=== PATIENT | female | born 1995 ===

== ENCOUNTER 2020-11-20 08:02 | Day surgery (SDC) | payer BC, OTHER ==
[~2020-11-20 08:02] MED LIST: Albuterol 0.083% 2.5 MG/3 ML Neb Soln NEB PRN; Dexamethasone 4 MG/ML 5 ML MDV ONE; HYDROmorphone 2 MG/ML Syringe IVPUSH PRN; Lactated Ringers 1,000 ML IV SCH; Metoclopramide 10 MG/2 ML SDV IVPUSH PRN; Morphine 2 MG/ML SYRINGE IVPUSH PRN; Naloxone 0.4 MG/ML Syringe IVPUSH PRN; Ondansetron 4 MG/2 ML SDV IVPUSH PRN; Ondansetron 4 MG/2 ML SDV ONE; Propofol 200 MG/20 ML SDV ONE; Sodium Chloride 0.9% 10 ML SDV IV PRN; Sodium Chloride 0.9% 10 ML Syringe FLUSH PRN; Sodium Chloride 0.9% 2.5 ML Syringe FLUSH PRN; Sodium Chloride 0.9% 20 ML ONE; ceFAZolin 2 GM in Premix Bag 1 BAG IV ONE; fentaNYL 100 MCG/2 ML SDV IVPUSH PRN; fentaNYL 100 MCG/2 ML SDV ONE
--- NOTE | 2020-11-20 09:14 | PCM.PREANE ---
Preanesthetic Assessment - Anesthesia/Transfusion/Family Hx Anesthesia History: Prior Anesthesia Without Reaction Family History of Anesthesia Reaction: No Transfusion History: No Prior Transfusion(s) - Review of Systems General: No Symptoms Pulmonary: No Symptoms Cardiovascular: No Symptoms Gastrointestinal: No Symptoms Neurological: No Symptoms Other: Reports: None - Physical Assessment NPO Status Date: 11/20/20 NPO Status Time: 00:01 Vital Signs: Last Vital Signs Temp 97.2 F 11/20/20 08:40 Pulse 66 11/20/20 08:40 Resp 16 11/20/20 08:40 BP 107/66 11/20/20 08:40 Pulse Ox 96 11/20/20 08:40 Height: 5 ft 11 in Weight: 206 lb ASA Class: 2 Mental Status: Alert & Oriented x3 Airway Class: Mallampati = 2 Dentition: Reports: Normal Dentition ROM/Head Extension: Full Lungs: Clear to Auscultation, Normal Respiratory Effort Cardiovascular: Regular Rate, Regular Rhythm - Lab Values: Laboratory Last Values Urine HCG, Qual NEGATIVE (NEGATIVE) 11/20/20 08:14 - Allergies Allergies/Adverse Reactions: Allergies Allergy/AdvReac Type Severity Reaction Status Date / Time No Known Allergies Allergy Verified 11/19/20 08:43 - Anesthesia Plan Pre-Op Medication Ordered: None - Acknowledgements Anesthesia Type Planned: General Anesthesia Pt an Appropriate Candidate for the Planned Anesthesia: Yes Alternatives and Risks of Anesthesia Discussed w Pt/Guardian: Yes Pt/Guardian Understands and Agrees with Anesthesia Plan: Yes Additional Comments: npo after mn tob 1/2 ppd etoh 2-3 beers daily hayfever bmi 29 PreAnesthesia Questionnaire HEENT History: Reports: Other (See Below) Other HEENT History: wears glasses Cardiovascular History: Reports: None Respiratory History: Reports: None Gastrointestinal History: Reports: GERD Genitourinary History: Reports: UTI, Recurrent PASTEURIZER History: Reports: None Musculoskeletal History: Reports: None Neurological History: Reports: None Psychiatric History: Reports: Other (See Below) Other Psychiatric History: some claustrophobia Endocrine/Metabolic History: Reports: None Hematologic History: Reports: None Immunologic History: Reports: None Oncologic (Cancer) History: Reports: None Dermatologic History: Reports: None - Past Surgical History Head Surgeries/Procedures: Reports: None HEENT Surgical History: Reports: Naso-Sinus Surgery, Tonsillectomy Cardiovascular Surgical History: Reports: None Respiratory Surgical History: Reports: None GI Surgical History: Reports: None Female Surgical History: Reports: None Oncologic Surgical History: Reports: None - SUBSTANCE USE Tobacco Use Status *Q: Current Every Day Tobacco User Tobacco Use Within Last Twelve Months: Cigarettes Recreational Drug Use History: No - HOME MEDS Home Medications: Home Meds . [No Known Home Meds] 11/19/20 [History] - CURRENT (IN HOUSE) MEDS Current Meds: Current Medications Albuterol (Albuterol 0.083% 2.5 Mg/3 Ml Neb Soln) 2.5 mg NEB ONETIME PRN PRN Reason: Wheezing Droperidol (Droperidol 5 Mg/2 Ml Sdv) 0.625 mg IVPUSH ONETIME PRN PRN Reason: Nausea/Vomiting Fentanyl (Fentanyl 100 Mcg/2 Ml Sdv) 50 mcg IVPUSH Q5M PRN PRN Reason: Pain (mild 1-3) Hydromorphone HCl (Hydromorphone 2 Mg/Ml Syringe) 0.5 mg IVPUSH Q10M PRN PRN Reason: Pain (moderate 4-6) Lactated Ringer's (Ringers, Lactated) 1,000 mls @ 125 mls/hr IV ASDIRECTED ROJELIO Last Admin: 11/20/20 08:53 Dose: 125 mls/hr Documented by: Metoclopramide HCl (Metoclopramide 10 Mg/2 Ml Sdv) 10 mg IVPUSH ONETIME PRN PRN Reason: Nausea/Vomiting Morphine Sulfate (Morphine 2 Mg/Ml Syringe) 2 mg IVPUSH Q10M PRN PRN Reason: Pain (severe 7-10) Naloxone HCl (Naloxone 0.4 Mg/Ml Syringe) 0.1 mg IVPUSH ASDIRECTED PRN PRN Reason: Respiratory Depression Ondansetron HCl (Ondansetron 4 Mg/2 Ml Sdv) 4 mg IVPUSH ONETIME PRN PRN Reason: Nausea/Vomiting Sodium Chloride (Sodium Chloride 0.9% 2.5 Ml Syringe) 2.5 ml FLUSH ASDIRECTED PRN PRN Reason: Keep Vein Open Sodium Chloride (Sodium Chloride 0.9% 10 Ml Sdv) 10 ml IV ASDIRECTED PRN PRN Reason: IV Use Sodium Chloride (Sodium Chloride 0.9% 10 Ml Syringe) 10 ml FLUSH ASDIRECTED PRN PRN Reason: Keep Vein Open Discontinued Medications Dexamethasone (Dexamethasone 4 Mg/Ml 5 Ml Mdv) Confirm Administered Dose 20 mg .ROUTE .STK-MED ONE Stop: 11/20/20 06:59 Fentanyl (Fentanyl 100 Mcg/2 Ml Sdv) Confirm Administered Dose 100 mcg .ROUTE .STK-MED ONE Stop: 11/20/20 06:59 Cefazolin Sodium/Dextrose 2 gm (/ Premix) 50 mls @ 100 mls/hr IV ONETIME ONE Stop: 11/17/20 09:17 Sodium Chloride (Normal Saline) Confirm Administered Dose 20 mls @ as directed .ROUTE .STK-MED ONE Stop: 11/20/20 07:01 Lidocaine HCl (Lidocaine 1% 5 Ml Sdv) Confirm Administered Dose 5 ml .ROUTE .STK -MED ONE Stop: 11/20/20 06:59 Ondansetron HCl (Ondansetron 4 Mg/2 Ml Sdv) Confirm Administered Dose 4 mg .ROUTE .STK-MED ONE Stop: 11/20/20 06:59 Propofol (Propofol 200 Mg/20 Ml Sdv) Confirm Administered Dose 200 mg .ROUTE .STK-MED ONE Stop: 11/20/20 06:59
[2020-11-20] MEDS ORDERED: Lidocaine 1% 20 ML MDV ONE (09:15)
[2020-11-20] MEDS ORDERED: Bupivacaine 0.5% 10 ML SDV ONE (09:15)
[2020-11-20] MEDS ORDERED: Octyl 2-Cyanoacrylate 1 Tube ONE (10:02)
--- NOTE | 2020-11-20 10:21 | PCM.POSTAN ---
POST ANESTHESIA ASSESSMENT - MENTAL STATUS Mental Status: Alert, Oriented - VITAL SIGNS Vital Signs: Last Vital Signs Temp 97.2 F 11/20/20 10:14 Pulse 61 11/20/20 10:14 Resp 16 11/20/20 10:14 BP 99/61 11/20/20 10:14 Pulse Ox 96 11/20/20 10:14 - RESPIRATORY Respiratory Status: Respiratory Rate WNL, Airway Patent, O2 Saturation Stable - CARDIOVASCULAR CV Status: Pulse Rate WNL, Blood Pressure Stable - GASTROINTESTINAL GI Status: No Symptoms - POST OP HYDRATION Hydration Status: Adequate & Stable
--- NOTE | 2020-11-20 10:22 | PCM.OPNOTE ---
<Freddy Marquez - Last Filed: 11/20/20 10:19> - General Post-Op/Procedure Note Date of Surgery/Procedure: 11/20/20 Pre Op Diagnosis: Left shoulder mass Post-Op Diagnosis: Left shoulder lipoma Anesthesia Technique: MAC Primary Surgeon: Samantha Henderson Fluid Replacement, Intraop: 600 EBL in mLs: 5 Condition: Good Free Text/Narrative:: Excision of left shoulder lipoma (5X4X1.5cm) <Samantha Henderson - Last Filed: 11/20/20 10:25> - General Post-Op/Procedure Note Free Text/Narrative:: Intake & Output 11/19/20 11/20/20 11/20/20 22:59 06:59 14:59 Intake Total 600 Balance 600
--- NOTE | 2020-11-20 10:22 | PCM48HPAN ---
Post Anesthesia Note - EVALUATION WITHIN 48HRS OF ANESTHETIC Vital Signs in Normal Range: Yes Patient Participated in Evaluation: Yes Respiratory Function Stable: Yes Airway Patent: Yes Cardiovascular Function Stable: Yes Hydration Status Stable: Yes Pain Control Satisfactory: Yes Nausea and Vomiting Control Satisfactory: Yes Mental Status Recovered: Yes Vital Signs: Last Vital Signs Temp 97.2 F 11/20/20 10:14 Pulse 59 L 11/20/20 10:20 Resp 13 11/20/20 10:20 BP 100/62 11/20/20 10:20 Pulse Ox 95 11/20/20 10:20
--- NOTE | 2020-11-20 17:28 | OR ---
SURGEON: SAMANTHA HENDERSON MD DATE OF PROCEDURE: 11/20/2020 PREOPERATIVE DIAGNOSIS: Left shoulder lipoma. POSTOPERATIVE DIAGNOSIS: Left shoulder lipoma. PROCEDURE PERFORMED: Excision left shoulder lipoma. PRIMARY SURGEON: Samantha Henderson MD ANESTHESIA: General LMA. FLUIDS: 600 mL crystalloid. ESTIMATED BLOOD LOSS: 5 mL. FINDINGS: 5 x 4 x 1.5 cm left shoulder lipoma. No margins associated with case. COMPLICATIONS: None. INDICATIONS: The patient is a 25-year-old female who presents with a progressively enlarging left shoulder mass. MRI of the left shoulder shows a lipoma in this area. I explained the need for excision given that it is changing in size. I explained the procedure, expected perioperative course, and the risks. The patient verbalized understanding and wishes to proceed. PROCEDURE IN DETAIL: The patient was brought in to the OR and placed on the OR table in supine position. A time-out was completed verifying the patient's name, age, date of , allergies, and procedure to be performed. General LMA anesthesia was induced. Once the airway was secured, the patient was placed into a semi- recumbent right lateral decubitus position. The patient was appropriately padded and secured to the table. The left shoulder was then prepped and draped in usual standard fashion. I anesthetized the area overlying the mass with a 1:1 mixture of 0.5% Marcaine plain and 1% lidocaine plain. A 15-blade was used to make a 4-cm incision over the top of the mass following Langerhans lines. Electrocautery was used to dissect down to the level of subcutaneous fat. I immediately encountered a large globular structure consistent with that of a lipoma. Using gentle blunt dissection, I was able to take down most of the attachments of this mass to the surrounding tissue. Using electrocautery, I was able to sharply dissect it free from some of the surrounding structures. The mass was delivered outside of the wound. Electrocautery was used to dissect it free from the lateral normal-appearing fat. The mass was then placed on the back table and measured. It measured 5 x 4 x 1.5 cm in size. Sent to pathology, labeled as left shoulder lipoma. Electrocautery was used to achieve hemostasis within the wound. The wound was irrigated. It was closed with interrupted layers of 3-0 Vicryl suture in the subcutaneous fat layer. The skin was closed with a running 4-0 Monocryl stitch. Dermabond and sterile dressings were applied. All counts were complete and correct at the end of the case. The patient was placed in supine position, extubated, and taken to PACU in stable condition. LINDA DICKSON /[id number] MTDD
== END 2020-11-20 11:35 | disposition home or self-care (01) ==
LOC: MW.SDS 08:02
PROVIDERS: ATTEND Surgery
DX: D17.22 Benign lipomatous neoplasm of skin and subcutaneous tissue of left arm (principal); F17.210 Nicotine dependence, cigarettes, uncomplicated
CPT/HCPCS: 11406; 81025; A9270; J1100; J2704; J3490; J7120; 00400; 88304; J2405; J3010

== ENCOUNTER 2025-04-11 06:25 | Emergency (ER) | payer SELFPAY ==
[2025-04-11] MEDS ORDERED: Sodium Chloride 0.9% 2.5 ML Syringe FLUSH PRN (06:43)
[2025-04-11] MEDS ORDERED: Sodium Chloride 0.9% 10 ML Syringe FLUSH PRN (06:43)
[2025-04-11 06:47] LABS: APPEARANCE,URINE CLEAR; GLUCOSE,URINE NEGATIVE (NEGATIVE); OCCULT BLOOD,URINE MODERATE (NEGATIVE)
[2025-04-11 06:55] LABS: EPITHELIAL CELLS,URINE RARE (NONE-FEW)
== END 2025-04-11 08:34 | disposition home or self-care (01) ==
LOC: MW.ED 06:25
DX: N12 Tubulo-interstitial nephritis, not specified as acute or chronic (principal); Z87.440 Personal history of urinary (tract) infections; Z79.899 Other long term (current) drug therapy
CPT/HCPCS: 74176; 74176-26; 81001; 81025; 99283; 99284